=== PATIENT | male | born 1975 | race Hispanic/Latino ===

== ENCOUNTER → 2020-04-25 | Day surgery (SDC) | payer OTHER ==
[~2020-04-25] MED LIST: EPHEDRINE SULFATE INJ 50 MG/ML VIAL ONE; FENTANYL CITRATE/PF 100MCG/2 ML INJ ONE; HYOSCYAMINE 0.125 MG TAB ONE; MIDAZOLAM HCL 2 MG/2 ML VIAL ONE; PROPOFOL IV EMULSION 10 MG/ML 20 ML VIAL ONE
--- NOTE | 2020-04-25 07:20 | NUR ---
SPIRITUAL CARE - Pre-Surgery Assessment: Pt's at bedside. Pt reported supportive attention from family and friends. Intervention: I provided pastoral presence, hospitality, and sympathetic listening. I acquainted pt with availability of [employer] while hospitalized. Outcome: Pt expressed appreciation for visit. No need for follow up indicated at this time. [facility] Department O: [phone]
[2020-04-25 12:03] VITALS: BP 111/69
--- NOTE | 2020-04-25 12:54 | Operative Report ---
DATE OF PROCEDURE: 04/25/2020 SURGEON: Santiago Mathur MD PROCEDURE: Colonoscopy with polypectomy. INDICATIONS FOR COLONOSCOPY: Surveillance colonoscopy, personal history of colon polyps. MEDICATIONS: The patient was done under MAC, please see anesthesiologist's note. PROCEDURE IN DETAIL: With the patient in the left lateral decubitus position, a flexible fiberoptic Olympus colonoscope was inserted into the rectum with ease and advanced all the way to the cecum. The right side of the colon was poorly visualized with large amount of retained fecal material. Some scattered fecal material was noted in the left colon, but visualization was good. Whatever was visualized, the mucosa overlying the transverse and descending appeared to be within normal limits. Two polyps were hot snared from the sigmoid colon. One polyp was hot snared from the rectum. The scope was then retroflexed into the distal rectum and small internal hemorrhoids were noted, none of which was actively bleeding. The scope was then straightened out, it was subsequently withdrawn, and the patient tolerated the procedure well. IMPRESSION: 1. Poor prep, right colon. 2. Sigmoid colon polyps x2, hot snared. 3. Rectal polyp x1, hot snared. 4. Internal hemorrhoids, none actively bleeding. PLAN: Follow up histology. Initiate high-fiber, low-fat diet. Initiate high-fiber supplement. The patient will need a repeat colonoscopy after a better prep. Santiago Mathur MD [facility] [place] /[id number] cc: Cortez Wynne DO
== END | disposition home or self-care (01) ==
LOC: OR 06:04
PROVIDERS: ATTEND Internal Medicine Gastroenterology
DX: Z09 Encounter for follow-up examination after completed treatment for conditions other than malignant neoplasm (principal); D12.5 Benign neoplasm of sigmoid colon; K62.1 Rectal polyp; K64.8 Other hemorrhoids; K59.00 Constipation, unspecified; R00.1 Bradycardia, unspecified; Z01.810 Encounter for preprocedural cardiovascular examination; Z01.812 Encounter for preprocedural laboratory examination; Z11.59 Encounter for screening for other viral diseases; Z68.29 Body mass index [BMI] 29.0-29.9, adult
CPT/HCPCS: 45385; 87635; 93005; J2704; 45378; 45384; J2250; J3010